=== PATIENT | female | born 2000 | race Caucasian/White ===

== ENCOUNTER 2021-03-20 22:54 | Inpatient (IN) | payer OTHER ==
[2021-03-21] MEDS ORDERED: LACTATED RINGERS SOLUTION 1000 ML INFUS.BAG IV ONE (00:03)
[2021-03-21] MEDS ORDERED: morphine CARPU-JECT 4 MG/1 ML DISP.SYRIN IVPUSH ONE (00:03)
[2021-03-21 00:35] LABS: BASO % 0.2 % (0-2.0); EOS % 0.3 % (0-4.5); HEMATOCRIT 32.2 % (32.4-45.2); HEMOGLOBIN 10.5 GM/dL (10.7-15.3); LYMPH % 14.5 % (8-40); MCHC 32.5 g/dl (32.0-36.0); MEAN CELL VOLUME 73.7 fl (80-96); MEAN PLT VOLUME 7.8 fl (7.5-11.1); PLATELET COUNT 400 10^3/uL (134-434); RBC 4.37 M/mm3 (3.60-5.2); RDW 17.5 % (11.6-15.6); WHITE BLOOD COUNT 13.6 K/mm3 (4.0-10.0)
[2021-03-21] MEDS ORDERED: morphine SULFATE 4 MG/ML VIAL ONE (00:36)
[2021-03-21 00:53] LABS: ALBUMIN 3.4 g/dl (3.4-5.0); BLOOD UREA NITROGEN 9.4 mg/dL (7-18); CALCIUM 9.3 mg/dL (8.5-10.1)
[2021-03-21 00:57] LABS: CREATININE 0.8 mg/dL (0.55-1.3)
[2021-03-21 00:58] LABS: BILIRUBIN,TOTAL 0.2 mg/dL (0.2-1); TOT PROT 7.8 g/dl (6.4-8.2)
[2021-03-21] MEDS ORDERED: CLINDAMYCIN 600MG PREMIX IVPB 600 MG/50 ML BAG IVPB ONE ×2 (01:21→01:30)
[2021-03-21] MEDS ORDERED: HYDROmorphone HCL CARPU-JECT 2 MG/1 ML DISP.SYRIN IVPUSH ONE (05:40)
[2021-03-21 10:59] VITALS: BMI 32.0
[2021-03-21] MEDS ORDERED: ACETAMINOPHEN 325 MG TABLET (FP) PO PRN ×3 (11:19→16:43)
[2021-03-21] MEDS ORDERED: morphine SULFATE 4 MG/ML VIAL IVPUSH PRN (11:21)
[2021-03-21] MEDS: CLINDAMYCIN 600MG PREMIX IVPB 600 MG/50 ML BAG IVPB SCH ×2 (12:05→17:33)
[2021-03-21] MEDS: D5-1/2NS+20 MEQ KCL - 20 MEQ/1,000 ML INFUS.BAG IV SCH (12:31)
[2021-03-21] MEDS ORDERED: PROMETHAZINE HCL 25 MG/1 ML VIAL IVPUSH PRN (13:50)
[2021-03-21] MEDS ORDERED: ONDANSETRON 4 MG/2 ML VIAL IVPUSH PRN (13:50)
[2021-03-21] MEDS ORDERED: LACTATED RINGERS SOLUTION 1,000 ML IV SCH (14:00)
[2021-03-21] MEDS ORDERED: PROPOFOL 20 ML ONE (15:24)
[2021-03-21] MEDS ORDERED: MIDAZOLAM HCL 2 MG/2 ML SINGLE DOSE VIAL ONE (15:24)
[2021-03-21] MEDS ORDERED: LIDOCAINE HCL/PF 2% SDV 5ML VIAL ONE (15:26)
[2021-03-21] MEDS ORDERED: DEXAMETHASONE SOD PHOSPHATE 4 MG/1 ML VIAL ONE (15:26)
[2021-03-21] MEDS ORDERED: GLYCOPYRROLATE 0.2 MG/1 ML VIAL ONE (15:26)
[2021-03-21] MEDS ORDERED: ONDANSETRON 4 MG/2 ML VIAL ONE (15:26)
[2021-03-21] MEDS ORDERED: KETOROLAC TROMETHAMINE 30 MG/1 ML VIAL ONE (15:40)
[2021-03-21] MEDS ORDERED: CLINDAMYCIN PHOSPHATE 900 MG/6 ML VIAL IVPB ONE (15:40)
[2021-03-21] MEDS ORDERED: CLINDAMYCIN PHOSPHATE 600 MG/4 ML VIAL ONE ×2 (15:41→15:43)
[2021-03-21] MEDS ORDERED: oxyCODONE HCL 5 MG TABLET PO PRN (16:43)
[2021-03-21] MEDS ORDERED: IBUPROFEN 400 MG TABLET (FP) PO PRN (16:43)
[2021-03-21] MEDS ORDERED: DEXTROSE 5%-WATER 100 ML IVPB ONE (19:43)
[2021-03-21] MEDS: CEFTRIAXONE 2 GM in DEXTROSE 5%-WATER 2 GM/100 ML BAG IVPB SCH (20:17)
[2021-03-22] MEDS: D5-1/2NS+20 MEQ KCL - 20 MEQ/1,000 ML INFUS.BAG IV SCH ×2 (00:41→11:44)
[2021-03-22] MEDS: CLINDAMYCIN 600MG PREMIX IVPB 600 MG/50 ML BAG IVPB SCH ×3 (01:29→16:59)
[2021-03-22] MEDS ORDERED: DEXTROSE 5%-WATER 100 ML IVPB ONE (08:47)
[2021-03-22 09:23] LABS: BASO % 0.2 % (0-2.0); EOS % 0.1 % (0-4.5); HEMATOCRIT 30.4 % (32.4-45.2); HEMOGLOBIN 9.6 GM/dL (10.7-15.3); MCH 23.9 pg (25.7-33.7); MCHC 31.7 g/dl (32.0-36.0); MEAN CELL VOLUME 75.4 fl (80-96); MEAN PLT VOLUME 8.4 fl (7.5-11.1); MONO % 4.8 % (3.8-10.2); NEUT % 82.9 % (42.8-82.8); PLATELET COUNT 365 10^3/uL (134-434); RBC 4.03 M/mm3 (3.60-5.2); RDW 17.4 % (11.6-15.6); WHITE BLOOD COUNT 14.5 K/mm3 (4.0-10.0)
[2021-03-22 09:43] LABS: BLOOD UREA NITROGEN 7.4 mg/dL (7-18); CALCIUM 9.2 mg/dL (8.5-10.1)
[2021-03-22 09:44] LABS: ALBUMIN 2.9 g/dl (3.4-5.0)
[2021-03-22 09:46] LABS: CREATININE 0.6 mg/dL (0.55-1.3)
[2021-03-22 09:48] LABS: BILIRUBIN,TOTAL 0.4 mg/dL (0.2-1)
[2021-03-22] MEDS: CEFTRIAXONE 2 GM in DEXTROSE 5%-WATER 2 GM/100 ML BAG IVPB SCH (11:39)
[2021-03-23] MEDS: CLINDAMYCIN 600MG PREMIX IVPB 600 MG/50 ML BAG IVPB SCH ×2 (02:10→10:53)
[2021-03-23 08:42] VITALS: TEMP 98.4
[2021-03-23 08:46] LABS: BASO % 0.9 % (0-2.0); EOS % 1.6 % (0-4.5); HEMATOCRIT 29.2 % (32.4-45.2); HEMOGLOBIN 9.7 GM/dL (10.7-15.3); LYMPH % 46.7 % (8-40); MCH 24.3 pg (25.7-33.7); MCHC 33.2 g/dl (32.0-36.0); MEAN CELL VOLUME 73.1 fl (80-96); MEAN PLT VOLUME 7.9 fl (7.5-11.1); NEUT % 43.8 % (42.8-82.8); PLATELET COUNT 367 10^3/uL (134-434); RBC 3.99 M/mm3 (3.60-5.2); RDW 17.3 % (11.6-15.6); WHITE BLOOD COUNT 8.9 K/mm3 (4.0-10.0)
[2021-03-23 08:57] LABS: CALCIUM 8.8 mg/dL (8.5-10.1)
[2021-03-23 08:58] LABS: ALBUMIN 3.1 g/dl (3.4-5.0); BLOOD UREA NITROGEN 8.2 mg/dL (7-18)
[2021-03-23 09:01] LABS: CREATININE 0.7 mg/dL (0.55-1.3)
[2021-03-23 09:03] LABS: BILIRUBIN,TOTAL 0.3 mg/dL (0.2-1); MAGNESIUM 1.9 mg/dL (1.8-2.4); TOT PROT 7.1 g/dl (6.4-8.2)
[2021-03-23] MEDS ORDERED: DEXTROSE 5%-WATER 100 ML IVPB ONE (09:56)
[2021-03-23] MEDS: CEFTRIAXONE 2 GM in DEXTROSE 5%-WATER 2 GM/100 ML BAG IVPB SCH (10:53)
[2021-03-23 17:05] VITALS: BP 122/67; PULSE 98
== END 2021-03-23 18:48 | disposition home or self-care (01) | DRG 226 ==
LOC: JER 22:54 → JERBED 03-21 02:04 → J8W 03-21 10:28
PROVIDERS: ADMIT Internal Medicine; ATTEND Nurse Practitioner Acute Care
PROC: 0D9Q0ZZ Drainage of Anus, Open Approach (ICD-10-PCS; principal; 2021-03-21 15:06)
DX: K61.0 Anal abscess (principal); L03.317 Cellulitis of buttock; B95.2 Enterococcus as the cause of diseases classified elsewhere; D72.829 Elevated white blood cell count, unspecified; L02.31 Cutaneous abscess of buttock
CPT/HCPCS: 36415; 74177-TC; 80053; 83735; 84703; 85025; 87040; 87070; 87076; 87186; 87205; 93005; 93010; 94760; 99285-25; C9803; Q9967; U0003; U0005

== ENCOUNTER 2023-05-14 11:37 | Emergency (ER) | payer OTHER ==
[2023-05-14 11:43] VITALS: BP 117/67; PULSE 96; RESP 18; TEMP 98.3; BMI 36.8
[2023-05-14] MEDS ORDERED: SODIUM CHLORIDE 0.9% 500 ML INFUS.BAG IV ONE (14:51)
[2023-05-14 14:57] LABS: HEMATOCRIT 35.8 % (32.4-45.2); HEMOGLOBIN 11.5 GM/dL (10.7-15.3); MCH 24.6 pg (25.7-33.7); MCHC 32.2 g/dl (32.0-36.0); MEAN CELL VOLUME 76.4 fl (80-96); MEAN PLT VOLUME 8.1 fl (7.5-11.1); PLATELET COUNT 296 10^3/uL (134-434); RBC 4.68 M/mm3 (3.60-5.2); RDW 16.6 % (11.6-15.6); WHITE BLOOD COUNT 5.9 K/mm3 (4.0-10.0)
[2023-05-14 14:58] LABS: INR 1.36 (0.83-1.09); PROTHROMBIN TIME (PATIENT) 15.7 SEC (9.7-13.0)
[2023-05-14 15:38] LABS: ANISOCYTOSIS 2+; MACROCYTOSIS 0
[2023-05-14 16:45] LABS: POTASSIUM 4.6 mmol/L (3.5-5.1)
[2023-05-14 16:47] LABS: CALCIUM 9.7 mg/dL (8.5-10.1)
[2023-05-14 16:48] LABS: ALBUMIN 3.7 g/dl (3.4-5.0); BLOOD UREA NITROGEN 9.1 mg/dL (7-18)
[2023-05-14 16:51] LABS: CREATININE 0.8 mg/dL (0.55-1.3)
[2023-05-14 16:52] LABS: BILIRUBIN,TOTAL 0.4 mg/dL (0.2-1); TOT PROT 8.6 g/dl (6.4-8.2)
== END 2023-05-14 19:42 | disposition home or self-care (01) ==
LOC: JER 11:37
DX: R06.02 Shortness of breath (principal); R50.9 Fever, unspecified; R05.9 Cough, unspecified; Z20.822 Contact with and (suspected) exposure to COVID-19
CPT/HCPCS: 0241U-QW; 36415; 71275-TC; 76705-TC; 80053; 80307; 84703; 85025; 85610; 85730; 86704; 86708; 86709; 86803; 86850; 86900; 86901; 87207; 87340; 87517; 99284-25; Q9967